=== PATIENT | female | born 1955 | race Caucasian/White ===

== ENCOUNTER 2024-04-21 09:49 | Outpatient (AMB) | payer MEDICARE, OTHER, SELFPAY ==
--- NOTE | 2024-04-21 10:09 | A.OFFVIS_ITS ---
Vital Signs 04/21/24 10:23 Height 5 ft 7 in Weight 260 lb BMI 40.7 BP 145/78 H Blood Pressure Location Lt brachial Position Sitting Respiration 15 Pulse 76 Pulse Source Pulse Oximeter Pulse Oximetry (%) 95 Oxygen Delivery Method Room Air Intake Visit Reasons: Disorder of Sacrum Allergies No Known Allergies Allergy (Verified 04/21/24 10:25) Medication List - Last Reconciled 04/21/24 by Blessing Reardon LPN celecoxib 100 mg PO BID hydrochlorothiazide 25 mg PO DAILY levocetirizine (Xyzal) 5 mg PO DAILY losartan 25 mg PO DAILY metformin ER 500 mg PO DAILY tramadol 50 mg PO TID PRN HPI HPI Disorder of Sacrum: Details: 68-year-old female who presents today to the office for evaluation of disorder of sacrum. She has a history of bilateral knee replacements. Max reports persistent lower back pain. She rates her pain at 8/10 in intensity. The pain has been ongoing for the last 4 months and has been managed with regular chiropractic treatments and medication, including Celebrex and Tramadol, that provided only temporary relief, and the pain returns. She reports that the pain is sharp and bone-like in nature. She is unable to sleep or do her ALDs due to the activity with pain, especially when she has to do something for a prolonged period of time. The pain is primarily left-sided. She has been experiencing spasms in her back. The pain is particularly severe when walking, to the point where she sometimes cannot stand up. She has been trying to manage the pain with restorative yoga, which she reports has been more helpful in providing long-term relief than the chiropractic. She says the chiropractic manipulation lasts for about a day and then the pain comes right back. She has been wearing a brace for her back with no relief but an increase in pain. She is taking tramadol 50 mg T.I.D and celecoxib 100 milligrams B.I.D. She had bilateral sacroiliac joint injections on 09/11/23 with about 25% improvement. She had left-sided sacroiliac joint injections on 02/17/24 that provided the first four hours of associated 80% relief. [facility] Medical History (Updated 04/21/24 @ 10:42 by Constantino Dillon MD) Prediabetes Obesity Sleep apnea, obstructive Surgical History (Updated 04/21/24 @ 10:42 by Constantino Dillon MD) H/O total knee replacement Review of Systems Const All systems reviewed & are unremarkable except as noted in HPI and below Physical Exam Vital Signs: Last Vital Signs Pulse 76 04/21/24 10:23 Resp 15 04/21/24 10:23 BP 145/78 H 04/21/24 10:23 Pulse Ox 95 04/21/24 10:23 Oxygen Delivery Method Room Air 04/21/24 10:23 BMI result Body Mass Index 40.7 General: Appears afebrile. Alert and oriented. Mood and affect appropriate. Follows and participates in conversation appropriately. Respiratory effort is unlabored. Able to transition from sit to stand unassisted. Ambulates with bilaterally normal heel strike and toe off. Results Reviewed Results Reviewed: No imaging is available for review. Assessment & Plan Assessment & Plan (1) Sacroiliac joint dysfunction: Code(s): M53.3 - Sacrococcygeal disorders, not elsewhere classified Category: Medical (2) Low back pain of over 3 months duration: Code(s): M54.50 - Low back pain, unspecified Category: Medical Plan 68-year-old female with a history of low back pain for the past three months and sacroiliac joint dysfunction in light of the positive diagnostic injection in the past with Dr. Santa. She was referred for discussion of sacroiliac joint injection/medial cluneal peripheral nerve stimulator. She has not had any recent physical therapy, so I provided the script for physical therapy to consider prior to proceeding with any type of implant therapy. She has also not had any recent imaging, so I ordered an MRI of the lumbar spine for back pain persistent despite conservative management. She will return to me after updated imaging and a trial of physical therapy for evaluation and potential planning. The patient expressed agreement with this plan. Scribed for Dr. Dillon by Wesley Barr, medical psychotherapist, on 04/21/2024. I, Dr. Dillon, have personally reviewed and agree with the information entered by the scribe. Orders: Orders MR lumbar spine wo con 04/21/24 M54.50 - Low back pain, unspecified PT Evaluation and Treatment 04/21/24 M53.3 - Sacrococcygeal disorders, not elsewhere classified, M54.50 - Low back pain, unspecified Coding Level of Care Code New Pt Level 4 (00973) Diagnoses Sacroiliac joint dysfunction M53.3 Low back pain of over 3 months duration M54.50
[2024-04-21 10:23] VITALS: BP 145/78; PULSE 76; RESP 15; O2SAT 95; BMI 40.7
== END 2024-04-21 10:45 | disposition home or self-care (01) ==
PROVIDERS: PCP Family Medicine; Referring Provider Physical Medicine & Rehabilitation; Visit Provider Internal Medicine
DX: M53.3 Sacrococcygeal disorders, not elsewhere classified (principal); M54.50 Low back pain, unspecified
CPT/HCPCS: 99204

== ENCOUNTER → 2024-04-21 09:49 | Outpatient (BNVA) | payer MEDICARE, OTHER, SELFPAY | PROVIDERS: PCP Family Medicine; Referring Provider Physical Medicine & Rehabilitation; Visit Provider Internal Medicine | DX: M53.3 Sacrococcygeal disorders, not elsewhere classified (principal); M54.50 Low back pain, unspecified | CPT/HCPCS: 99202 ==

== ENCOUNTER 2024-04-30 09:55 | Outpatient (REF) | payer MEDICARE, OTHER, SELFPAY ==
--- NOTE | ~2024-04-30 | MR_ITS ---
CLINICAL HISTORY: M54.50 - Low back pain, unspecified Exam: MRI of the lumbar spine without intravenous contrast. Comparison: None. Findings: Mild convex right mid lumbar curvature. Modic type 1 endplate changes are seen at multiple levels, most pronounced at L3-4 and L4-5. Mild osteopenia. No acute fracture. The conus terminates at L1. No abnormal signal intensity identified within the conus medullaris. No retroperitoneal mass lesion seen within the field of view. Segmental analysis: L1-2: Disc height loss with disc desiccation and broad-based disc bulge, asymmetric to the right. Dikc-sw-kbgurcyc facet joint degenerative change. Central canal is patent. Neural foramina are patent. L2-3: Broad-based disc osteophyte complex. Moderate facet joint degenerative change. Mild narrowing of the left lateral recess. Neural foramina are patent. L3-4: Broad-based disc bulge, asymmetric to the left. Moderate facet joint degenerative change. Mdyb-ma-woaduqla narrowing of the left lateral recess. Severe left-sided neural foraminal narrowing. Right neural foramina is patent. L4-5: Broad-based disc bulge, asymmetric to the right. Moderate facet joint degenerative change. Central canal is patent. Severe right neural foraminal narrowing. L5-S1: Osteophytic ridging is asymmetric to the right. Broad-based disc bulge as well which is asymmetric to the right. Moderate facet joint degenerative change. Central canal is patent. Moderate right neural foraminal narrowing. Impression: Multilevel degenerative disc disease and degenerative facet disease as above with areas of central canal and neural foraminal narrowing. This document has been electronically signed by: Daniel Jarrett MD on 05/03/2024 06:12:12
== END 2024-04-30 09:56 | disposition home or self-care (01) ==
LOC: HO.MRI 09:55
PROVIDERS: Visit Provider Internal Medicine
DX: M54.50 Low back pain, unspecified (principal)
CPT/HCPCS: 72148

== ENCOUNTER → 2024-04-30 10:09 | Outpatient (BNV) | payer MEDICARE, OTHER, SELFPAY | PROVIDERS: Visit Provider Radiology Diagnostic Radiology | DX: M51.360 Other intervertebral disc degeneration, lumbar region with discogenic back pain only (principal) | CPT/HCPCS: 72148 ==